=== PATIENT | male | born 1955 | race Caucasian/White ===

== ENCOUNTER 2018-04-18 08:14 | Observation (INO) | payer BC ==
[2018-04-18 09:31] VITALS: BMI 33.2
[2018-04-18 09:31] LABS: Urine Appearance CLEAR; Urine Bilirubin NEGATIVE (NEG); Urine Blood NEGATIVE (NEG); Urine Color YELLOW; Urine Glucose NEGATIVE (NEG); Urine Protein NEGATIVE (NEG); Urine Specific Gravity 1.025 (1.005-1.030); Urine Urobilinogen 0.2 mg/dL (0.2-1.0); Urine pH 6.5 (5.0-7.0)
[2018-04-18 10:05] LABS: Urine Bacteria <20 /HPF (NONE SEEN); Urine Culture Reflex Order NOT NEEDED; Urine RBC <5 /HPF (NONE SEEN)
[2018-04-18] MEDS ORDERED: MORPHINE 4 MG/ML SYR IV PRN ×2 (10:29→16:23)
--- NOTE | 2018-04-18 14:08 | P.HP ---
Certification for Inpatient Patient admitted to: Observation With expected LOS: <2 Midnights Patient will require the following post-hospital care: None Practitioner: I am a practitioner with admitting privileges, knowledge of patient current condition, hospital course, and medical plan of care. Services: Services provided to patient in accordance with Admission requirements found in Title 42 Section 412.3 of the Code of Federal Regulations Patient History Date of Service: 04/18/18 Reason for admission: Cholecystitis with cholelithiasis, biliary colic History of Present Illness: This patient has had severe abdominal pain all day yesterday. Been in the right upper quadrant. Thought it was his heartburn. Pain was unrelenting and he went to another facility for diagnosis and treatment. He was found have on ultrasound a stone stuck in the neck of the gallbladder. Allergies HORSE/EQUINE PRODUCT DERIVA Allergy (Severe, Uncoded 04/18/18 09:06) Anaphylaxis Home medications list reviewed: Yes Home Medications: NK [No Home Meds] 04/18/18 - Past Medical/Surgical History Has patient received pneumonia vaccine in the past: No Diabetic: No -: GERD -: STERNUM REPAIR AFTER IT SNAPPED IN HALF DURING WATER SKIING - Social History Smoking Status: Former smoker Alcohol use: No CD- Drugs: No Caffeine use: Yes Place of Residence: Home Review of Systems Unremarkable Gastrointestinal: Other (The patient complains of esophageal reflux and heartburn for the last 8 years) Physical Examination - Vital Signs Temperature: 97.4 F Blood Pressure: 150/77 Pulse: 52 Respirations: 18 Pulse Ox (%): 95 - Physical Exam General: Alert, Mild distress HEENT: Sclerae nonicteric Respiratory: Normal air movement Cardiovascular: Normal S1 S2 Gastrointestinal: Other (Tender in the right upper quadrant) External genitalia: Normal Rectal: Deferred - Studies Elevated white cell count Imagings Data: CT scan demonstrates large stone stuck in the neck of the gallbladder. Assessment and Plan - Plan Patient has a stone stuck in his gallbladder the right upper quadrant on CT scan. Has received pain medicine. Pain is currently alleviated, will take to the operating room for lap choly with intraoperative cholangiogram. The risks of this procedure have been discussed. The possibility of bleeding, infection, injury to bile ducts blood vessels and intestines has been described. The possible need for an open and/or further surgeries and procedures was discussed. He understands and wants to proceed. Discharge Plan: Home Plan to discharge in: 24 Hours - Advance Directives Does patient have a Living Will: No Does patient have a Durable POA for Healthcare: No
[2018-04-18] MEDS ORDERED: PROPOFOL 200 MG/20 ML VIAL IV ONE (14:25)
[2018-04-18] MEDS ORDERED: LIDOCAINE 2% MPF 5 ML VIAL ONE (14:26)
[2018-04-18] MEDS ORDERED: ROCURONIUM 50 MG/5 ML VIAL IV ONE (14:26)
[2018-04-18] MEDS ORDERED: FENTANYL CITR 100 MCG/2 ML ONE (14:26)
[2018-04-18] MEDS ORDERED: BUPIVACAINE 0.5% PF 10 ML VIAL ONE (14:38)
[2018-04-18] MEDS ORDERED: Ringers Lactate 1,000 ML IV ONE (14:40)
[2018-04-18] MEDS ORDERED: ONDANSETRON HCL 40 MG/20 ML VIAL ONE (15:03)
[2018-04-18] MEDS ORDERED: DEXAMETHASONE 10 MG/ML VIAL ONE (15:03)
[2018-04-18] MEDS ORDERED: KETOROLAC 30 MG/ML INJ ONE (15:03)
[2018-04-18] MEDS ORDERED: NEOSTIGMINE 1 MG/ML -5 ML SYRINGE ONE (15:41)
[2018-04-18] MEDS ORDERED: GLYCOPYRROLATE 0.2 MG/ML SYR ONE (15:41)
--- NOTE | 2018-04-18 16:18 | P.OP ---
Preoperative diagnosis: Cholecystitis with cholelithiasis, biliary colic Postoperative diagnosis: Gangrenous cholecystitis with cholelithiasis, biliary colic Primary procedure: Laparoscopic cholecystectomy Secondary procedure: Intraoperative cholangiogram Anesthesia: General Estimated blood loss: Less than 30 cc Specimen: 1 gallbladder and contents Operative Technique: The patient was brought to the operating room placed supine on the table. After the induction of adequate general endotracheal anesthesia, the area of the abdomen is prepped with a DuraPrep solution, and draped in the usual aseptic manner. A subumbilical incision was made. This brought down through the skin and subcutaneous tissue. The Visiport was used to enter the peritoneal cavity and created pneumoperitoneum to approximately 12 mm of mercury. Under direct vision a 5 mm trocar was placed in the upper midline, and 2 other 5 mm trocars on the right lateral side. The patient's head was then elevated and rolled towards the stereo map plotter operator's side. We could see an acutely inflamed gallbladder. There was IV is patchy gangrene at the fundus of the gallbladder. It was markedly distended. We aspirated the common tense of the gallbladder. A grasper was able to be placed on the fundus of the gallbladder. Another 1 was placed down by Amy's pouch. Applying lateral traction we were able to dissect and expose the cystic duct and artery. This area was noted be markedly edematous with small oozing capillaries to most likely venous congestion The artery was dealt with 1st. It was clipped and divided in the usual manner. A clip was then placed between the gallbladder and the cystic duct. An opening was made into the cystic duct. We attempted then to pass the cholangiocath into the cystic duct. The cholangiogram revealed no evidence of any filling defects and we had good flow of contrast into the duodenum. Clips were now placed on the distal portion of the cystic duct. The cystic duct was then divided. The gallbladder was now dissected free from the liver bed. The liver this area was quite friable as was the gallbladder most notably on the posterior surface. A small rent was made in the gallbladder during our dissection. The gallbladder was finally dissected free from the liver bed, placed into an Endo-Catch, and brought out through the umbilical trocar site. The gallbladder fossa was inspected to ensure adequate hemostasis. It was noted that we had lost a small stone from the gallbladder. It was Graston we attempted ring out through the 10 mm trocar site. It fragmented and necessitated piecemeal extraction from the peritoneal cavity. The area was now irrigated with a saline solution. Attention was turned back towards the right upper quadrant. It was irrigated with a saline solution and the irrigant aspirated from the peritoneal cavity. 0.25% Marcaine was aerosolized into the right upper quadrant and the gallbladder fossa. The umbilical trocar site was now approximated with an Endo Close and an absorbable sutures. The patient also has a umbilical hernia. It was necessary to place 4 interrupted sutures in this area to approximate the facile defect. The pneumoperitoneum was then collapsed , the suture tied, and antonia applied to the skin. A further 0.25% Marcaine was injected around are incision sites. At the end of the procedure the patient was in a stable condition when sent to the recovery room. Needle sponge instrument count were correct. 1 specimen was sent for histopathology. Complications: None Transferred to: Recovery Room Condition: Good
[2018-04-18] MEDS ORDERED: ONDANSETRON 4 MG/2 ML VIAL IV PRN (16:23)
[2018-04-18] MEDS ORDERED: HYDROCODONE/APAP 7.5/325 MG TAB PO PRN (16:23)
--- NOTE | 2018-04-18 16:34 | RAD REPORT ---
EXAM DESCRIPTION: RAD - Cholangiogram Oper-Xray Or - 04/18/2018 4:22 pm CLINICAL HISTORY: LAP FIDEL WITH IOC GALLSTONES COMPARISON: ABDOMEN SINGLE VIEW dated 12/13/2013 FINDINGS: Cystic duct injection was performed by operating surgeon. No retained stone is seen in the common duct. Total fluoro time: 0.1 minutes. IMPRESSION: No evidence of retained common duct stone.
[2018-04-18] MEDS: Ringers Lactate 1,000 ML IV SCH (17:00)
[2018-04-18 23:22] VITALS: O2SAT 93
[2018-04-19] MEDS: Ringers Lactate 1,000 ML IV SCH (02:31)
--- NOTE | 2018-04-19 17:39 | P.PN ---
Date of Service: 04/19/18 S: Patient feels well this evening, has been up ambulating, tolerating a diet, is anxious to go home. O: Incisions are clean, vital signs are stable A: Surgically stable P: This is known well status post laparoscopic cholecystectomy with intraoperative cholangiogram for acute gangrenous cholecystitis. He has received 3 doses of antibiotics. He is not requiring any pain medicine, is awake alert active able to get up and walk around. He is anxious to be discharged. He will go home today, see me on Friday in my office. If he has any questions or problems, he knows to return to the emergency room, or contact me.
[2018-04-19 18:18] VITALS: BP 123/75; TEMP 97.4
== END 2018-04-19 18:00 | disposition home or self-care (01) ==
LOC: 2ND 08:42
PROVIDERS: ADMIT Surgery; ATTEND Surgery
PROC: BF101ZZ Fluoroscopy of Bile Ducts using Low Osmolar Contrast (ICD-10-PCS; 2018-04-18)
PROC: 0FT44ZZ Resection of Gallbladder, Percutaneous Endoscopic Approach (ICD-10-PCS; principal; 2018-04-18 15:00)
DX: K80.00 Calculus of gallbladder with acute cholecystitis without obstruction (principal); Z87.891 Personal history of nicotine dependence
CPT/HCPCS: 74300; 81001; 88304; G0378; J1100; J2405; J2710; J3010; Q9967

== ENCOUNTER 2024-07-12 03:38 | Emergency (ER) | payer OTHER ==
[2024-07-12 04:43] LABS: Specific Gravity 1.016 (1.005-1.030); Sqamous Epithelial None Seen /HPF (None Seen); Urine Bacteria None Seen /HPF (<20); Urine Bilirubin NEGATIVE (Negative); Urine Blood Negative (Negative); Urine Clarity Extremely Turbid (Clear); Urine Color Light-Yellow (Yellow); Urine Culture Reflex Order NOT NEEDED; Urine Glucose NEGATIVE (Negative); Urine Ketones NEGATIVE (Negative); Urine Microscopic Reflex YN ORDER UMIC; Urine Nitrite NEGATIVE (Negative); Urine Protein NEGATIVE (Negative); Urine RBC None Seen /HPF (None Seen); Urine Urobilinogen Normal (Normal); Urine WBC None Seen /HPF (<5)
[2024-07-12] MEDS ORDERED: CIPROFLOXACIN HCL 500 MG TAB ONE (04:59)
--- NOTE | 2024-07-12 04:59 | EDPHYS ---
Physician Documentation [facility] Name: Celso Zhong Age: 69 yrs Sex: Male : 1955 Arrival Date: 07/12/2024 Time: 03:38 Bed 8 Private MD: ED Physician Salo Knox HPI: 07/12 03:54 This 69 yrs old Male presents to ER via Unassigned with complaints of Pain With rn Urination, Urinary Retention. 03:54 The patient presents with urinary symptoms, retention, unable to void, Last void was rn yesterday. Onset: The symptoms/episode began/occurred yesterday. Modifying factors: The symptoms are alleviated by nothing, the symptoms are aggravated by nothing. Severity of symptoms: At their worst the symptoms were moderate, in the emergency department the symptoms are unchanged. The patient has not experienced similar symptoms in the past. Patient reports noticed yesterday was having difficulty urinating, last normal urination was yesterday morning around 9 or 10:00. Throughout the day was exhibiting dribbling urination and then now unable to urinate. Reports lower abdominal fullness as if his bladder was full. No fever or chills. Does report history of UTIs in the past. Unknown if any prostate problems. Denies trauma. Denies hematuria.. Historical: - Allergies: 04:03 HORSE/EQUINE PRODUCT DERIVATIVES; vc1 - Home Meds: 04:03 levothyroxine oral [Active]; tamsulosin 0.4 mg oral capsule [Active]; "statin" [Active];vc1 - PMHx: 04:03 Hypothyroidism; Hypercholesterolemia; prostate issue; vc1 - PSHx: 04:03 None; vc1 - Immunization history:: Client reports having NOT received the Covid vaccine. - Infectious Disease History:: Denies. - Family history:: not pertinent. - Social history:: Smoking status: Patient reports use of chewing tobacco. Patient denies any tobacco usage or history of. - Hospitalizations: : No recent hospitalization is reported. ROS: 03:54 Constitutional: Negative for fever, chills, and weight loss, Cardiovascular: Negative rn for chest pain, palpitations, and edema, Respiratory: Negative for shortness of breath, cough, wheezing, and pleuritic chest pain, Abdomen/GI: + suprapubic pain Back: Negative for injury and pain, : + unable to urinate Exam: 03:54 Constitutional: This is a well developed, well nourished patient who is awake, alert, rn and in no acute distress. Ambulatory to room without difficulty or assistance Cardiovascular: Regular rate and rhythm. No pulse deficits. Abdomen/GI: Soft, nontender, mild discomfort upon suprapubic palpation Vital Signs: 03:50 BP 162 / 98; Pulse 75; Resp 15; Temp 97; Pulse Ox 100% ; Weight 95.25 kg; Height 5 ft. vc1 9 in. ; Pain 7/10; 04:26 BP 162 / 96; Pulse 72; Resp 16; Temp 97; Pulse Ox 100% ; Pain 2/10; bm8 05:04 BP 145 / 83; Pulse 67; Resp 17; Temp 97; Pulse Ox 100% ; Pain 0/10; bm8 03:50 Body Mass Index 31.01 (95.25 kg, 175.26 cm) vc1 03:50 Pain Scale: Adult vc1 04:26 Pain Scale: Adult bm8 05:04 Pain Scale: Adult bm8 Carrie Coma Score: 04:26 Eye Response: spontaneous(4). Motor Response: obeys commands(6). Verbal Response: bm8 oriented(5). Total: 15. 05:04 Eye Response: spontaneous(4). Motor Response: obeys commands(6). Verbal Response: bm8 oriented(5). Total: 15. MDM: 03:48 Medical Screening Exam initiated rn 04:56 Differential diagnosis: UTI, urinary retention, prostatitis. Data reviewed: vital rn signs, nurses notes, lab test result(s), and as a result, I will discharge patient. Counseling: I had a detailed discussion with the patient and/or guardian regarding the historical points, exam findings, and any diagnostic results supporting the discharge/admit diagnosis, lab results, the need for outpatient follow up, to return to the emergency department if symptoms worsen or persist or if there are any questions or concerns that arise at home. Response to treatment: the patient's symptoms have markedly improved after treatment, and as a result, I will discharge patient. Special discussion: I discussed with the patient/guardian in detail that at this point there is no indication for admission to the hospital. It is understood, however, that if the symptoms persist or worsen the patient needs to return immediately for re-evaluation. Based on the history and exam findings, there is no indication for further emergent testing or inpatient evaluation. I discussed with the patient/guardian the need to see the urologist for further evaluation of the symptoms. ED course: Patient markedly improved after Hercules catheter insertion. No hematuria noted. Good drainage. UA negative for infection. Patient already on Flomax. Will place on antibiotics and he has a urologist and will try to get in as soon as possible. Return precautions given and understood.. 07/12 03:48 Order name: Urinalysis w/ reflexes; Complete Time: 04:48 rn 07/12 03:54 Order name: Hercules Leg Bag; Complete Time: 04:29 rn Administered Medications: 05:04 Drug: Ciprofloxacin PO 500 mg PO once Route: PO; bm8 05:04 Follow up: Response: No adverse reaction; Medication administered at discharge. bm8 Disposition Summary: 07/12/24 04:58 Discharge Ordered Notes: Location: Home rn Problem: new rn Symptoms: have improved rn Condition: Stable rn Diagnosis - Retention of urine, unspecified rn Followup: rn - With: Private Physician - When: As needed - Reason: Recheck today's complaints, Re-evaluation by your physician Discharge Instructions: - Discharge Summary Sheet rn - Indwelling Urinary Catheter Care, Adult rn - Acute Urinary Retention, Male rn Forms: - Medication Reconciliation Form rn - Antibiotic rn neonatal icu - Prescription Opioid Use rn - Patient Portal Instructions rn - Leadership Thank You Letter rn Prescriptions: - Cipro 500 mg Oral Tablet - take 1 tablet ORAL route every 12 hours for 10 days; 20 tablet; Refills: 0, rn Product Selection Permitted Signatures: Dispatcher [employer] EDSalo Keane MD MD rn Calcote, Vanessa, RN RN vc1 Win Barraza, RN RN bm8
--- NOTE | 2024-07-12 04:59 | ER ---
Nurse's Notes [facility] Name: Celso Zhong Age: 69 yrs Sex: Male : 1955 Arrival Date: 07/12/2024 Time: 03:38 Bed 8 Private MD: Diagnosis: Retention of urine, unspecified Presentation: 07/12 03:50 Chief complaint: Patient states: trouble urinating since yesterday with burning and vc1 pain to the tip of my penis. Coronavirus screen: Client denies travel out of the [place] in the last 14 days. At this time, the client does not indicate any symptoms associated with coronavirus-19. Ebola Screen: Patient negative for fever greater than or equal to 101.5 degrees Fahrenheit, and additional compatible Ebola Virus Disease symptoms Patient denies exposure to infectious person. Patient denies travel to an Ebola-affected area in the 21 days before illness onset. No symptoms or risks identified at this time. 03:50 Method Of Arrival: Ambulatory vc1 03:50 Initial Sepsis Screen: Does the patient meet any 2 criteria? No. Patient's initial vc1 sepsis screen is negative. Does the patient have a suspected source of infection? No. Patient's initial sepsis screen is negative. Risk Assessment: Do you want to hurt yourself or someone else? Patient reports no desire to harm self or others. Onset of symptoms was July 11, 2024 at 18:00. Care prior to arrival: None. Activity prior to arrival: None. Mechanism of Injury: No Mechanism of Injury. Transition of care: patient was not received from another setting of care. 03:50 Acuity: CAROLYN 4 vc1 Triage Assessment: 04:09 General: Appears in no apparent distress. Behavior is calm, cooperative, appropriate vc1 for age. Pain: Complains of pain in meatus Pain does not radiate. Pain currently is 7 out of 10 on a pain scale. Quality of pain is described as burning. EENT: No deficits noted. No signs and/or symptoms were reported regarding the EENT system. Neuro: Level of Consciousness is awake, alert, obeys commands, Oriented to person, place, time, situation, Appropriate for age. Cardiovascular: No deficits noted. Capillary refill < 3 seconds Patient's skin is warm and dry. Cardiovascular: Heart tones S1 S2 present. Respiratory: Airway is patent Respiratory effort is even, unlabored, Respiratory pattern is regular, symmetrical, Breath sounds are clear. GI: No deficits noted. No signs and/or symptoms were reported involving the gastrointestinal system. : Reports burning with urination, inability to void, since 1800 07/11/24 pain with urination, Pain is 7 out of 10 on a pain scale. Derm: Skin is intact, is healthy with good turgor, Skin is dry, Skin is normal, Skin temperature is warm. Musculoskeletal: Circulation, motion, and sensation intact. Range of motion: intact in all extremities. Historical: - Allergies: 04:03 HORSE/EQUINE PRODUCT DERIVATIVES; vc1 - Home Meds: 04:03 levothyroxine oral [Active]; tamsulosin 0.4 mg oral capsule [Active]; "statin" [Active];vc1 - PMHx: 04:03 Hypothyroidism; Hypercholesterolemia; prostate issue; vc1 - PSHx: 04:03 None; vc1 - Immunization history:: Client reports having NOT received the Covid vaccine. - Infectious Disease History:: Denies. - Family history:: not pertinent. - Social history:: Smoking status: Patient reports use of chewing tobacco. Patient denies any tobacco usage or history of. - Hospitalizations: : No recent hospitalization is reported. Screenin:08 [facility] ED Fall Risk Assessment (Adult) History of falling in the last 3 months, vc1 including since admission No falls in past 3 months (0 pts) Confusion or Disorientation No (0 pts) Intoxicated or Sedated No (0 pts) Impaired Gait No (0 pts) Mobility Assist Device Used No (0 pt) Altered Elimination Yes (1 pt) Score/Fall Risk Level 3 or more points = High Risk Oriented to surroundings, Maintained a safe environment, Educated pt \\T\\ family on fall prevention, incl call for assistance when getting out of bed. Abuse screen: Denies threats or abuse. Nutritional screening: No deficits noted. Tuberculosis screening: No symptoms or risk factors identified. Assessment: 04:16 General: See triage assessment. vc1 04:26 General: Appears in no apparent distress. comfortable, Behavior is calm, cooperative, bm8 appropriate for age. Pain: Denies pain. Neuro: No deficits noted. Level of Consciousness is awake, alert, obeys commands, Oriented to person, place, time, situation, Appropriate for age. Cardiovascular: No deficits noted. Denies chest pain, Capillary refill < 3 seconds in bilateral fingers toes Patient's skin is warm and dry. Respiratory: No deficits noted. Airway is patent Respiratory effort is even, unlabored, Respiratory pattern is regular, symmetrical. GI: No signs and/or symptoms were reported involving the gastrointestinal system. : Urine is cloudy. EENT: No signs and/or symptoms were reported regarding the EENT system. Derm: No deficits noted. No signs and/or symptoms reported regarding the dermatologic system. Musculoskeletal: No signs and/or symptoms reported regarding the musculoskeletal system. 05:04 Reassessment: Patient appears in no apparent distress at this time. Patient and/or bm8 family updated on plan of care and expected duration. Pain level reassessed. Patient is alert, oriented x 3, equal unlabored respirations, skin warm/dry/pink. Patient denies pain at this time. Patient states feeling better. Patient states symptoms have improved. Vital Signs: 03:50 BP 162 / 98; Pulse 75; Resp 15; Temp 97; Pulse Ox 100% ; Weight 95.25 kg; Height 5 ft. vc1 9 in. ; Pain 7/10; 04:26 BP 162 / 96; Pulse 72; Resp 16; Temp 97; Pulse Ox 100% ; Pain 2/10; bm8 05:04 BP 145 / 83; Pulse 67; Resp 17; Temp 97; Pulse Ox 100% ; Pain 0/10; bm8 03:50 Body Mass Index 31.01 (95.25 kg, 175.26 cm) vc1 03:50 Pain Scale: Adult vc1 04:26 Pain Scale: Adult bm8 05:04 Pain Scale: Adult bm8 Carrie Coma Score: 04:26 Eye Response: spontaneous(4). Motor Response: obeys commands(6). Verbal Response: bm8 oriented(5). Total: 15. 05:04 Eye Response: spontaneous(4). Motor Response: obeys commands(6). Verbal Response: bm8 oriented(5). Total: 15. ED Course: 03:44 Patient arrived in ED. gm2 03:48 Salo Knox MD is Attending Physician. rn 04:03 Triage completed. vc1 04:06 Arm band placed on right wrist. vc1 04:09 Patient has correct armband on for positive identification. Bed in low position. Call vc1 light in reach. Pulse ox on. NIBP on. 04:25 Win Barraza, RN is Primary Nurse. bm8 04:26 No provider procedures requiring assistance completed. Urine collected: Sweeney catheter bm8 specimen, cloudy, Amount Returned: 900mL. Sweeney cath inserted, using sterile technique, 16 Fr., by nd, balloon inflated, to gravity drainage, urine specimen collected. Patient tolerated well. switched to leg bag. Patient did not have IV access during this emergency room visit. Patient maintains SpO2 saturation greater than 95% on room air. 05:00 Provided Education on: sweeney bag. vc1 Administered Medications: 05:04 Drug: Ciprofloxacin PO 500 mg PO once Route: PO; bm8 05:04 Follow up: Response: No adverse reaction; Medication administered at discharge. bm8 Medication: 04:15 VIS not applicable for this client. vc1 Outcome: 04:58 Discharge ordered by . rn 04:59 Discharged to home ambulatory, vc1 04:59 Condition: good 04:59 Discharge instructions given to patient, Instructed on discharge instructions, follow up and referral plans. medication usage, Demonstrated understanding of instructions, follow-up care, medications, Prescriptions given X 1, 05:05 Patient left the ED. bm8 Signatures: Salo Knox MD MD rn Calcote, Vanessa, RN RN vc1 Inés More[facility] Win Barraza, RN RN bm8
[2024-07-12 08:24] VITALS: TEMP 97; O2SAT 100
[2024-07-12 08:27] VITALS: BP 145/83
== END 2024-07-12 05:05 | disposition home or self-care (01) ==
LOC: ER 03:38
DX: R33.9 Retention of urine, unspecified (principal); R30.0 Dysuria
CPT/HCPCS: 51702; 81001; 99284

== ENCOUNTER 2024-07-25 16:07 | Emergency (ER) | payer OTHER ==
[2024-07-25] MEDS ORDERED: BISACODYL 10 MG RECTAL SUPP ONE (16:51)
[2024-07-25] MEDS ORDERED: ONDANSETRON 4 MG/2 ML VIAL ONE (16:51)
[2024-07-25] MEDS ORDERED: NA CHLORIDE 0.9% 1,000 ML ONE (16:51)
[2024-07-25] MEDS ORDERED: LACTULOSE 20 GM/30 ML UCUP ONE ×2 (16:51→18:45)
[2024-07-25] MEDS ORDERED: FAMOTIDINE 20 MG/2 ML VIAL IV ONE (16:51)
[2024-07-25 16:59] LABS: Absolute Eosinophils 0.2 K/uL (0-0.5); Absolute Lymphocytes (CBC) 2.3 K/uL (0.7-4.9); Absolute Monocytes 1.2 K/uL (0.1-1.3); Absolute Neutrophil 4.9 K/uL (1.8-8.0); Basophils % 0.6 % (0-1.3); Eosinophils % 2.1 % (0-4.4); Hematocrit 41.8 % (39.6-49.0); Hemoglobin 13.8 g/dL (13.6-17.9); Lymphocytes % 26.8 % (15.3-44.8); MCH 30.8 pg (27.0-35.0); MCHC 33.1 g/dL (32.0-36.0); MPV 7.6 fL (7.6-11.3); Monocytes % 14.4 % (3.3-12.3); Neutrophils % 56.1 % (41.7-73.7); Platelets 264 thou/uL (152-406); Red Cell Distribution Width 13.7 % (12.1-15.2)
[2024-07-25 17:01] LABS: Specific Gravity 1.016 (1.005-1.030); Sqamous Epithelial None Seen /HPF (None Seen); Urine Bacteria None Seen /HPF (<20); Urine Bilirubin NEGATIVE (Negative); Urine Blood 3+ (OVER) (Negative); Urine Clarity Extremely Turbid (Clear); Urine Color Light-Orange (Yellow); Urine Crystals Unidentified Few /HPF (None Seen); Urine Culture Reflex Order REFLEXED; Urine Glucose NEGATIVE (Negative); Urine Ketones NEGATIVE (Negative); Urine Microscopic Reflex YN ORDER UMIC; Urine Mucus Slight /HPF (None Seen); Urine Nitrite 2+ (Negative); Urine Protein 2+ (Negative); Urine RBC >50 /HPF (None Seen); Urine Urobilinogen Normal (Normal); Urine WBC >50 /HPF (<5); Urine WBC Clump Occasional /HPF (None Seen); Urine Yeast (Budding) Moderate /HPF (None Seen)
[2024-07-25 17:16] LABS: Albumin 3.4 g/dL (3.4-5.0); Albumin/Globulin Ratio 0.9 (1.1-1.8); Anion Gap 6.8 mEq/L (5.0-15.0); Bilirubin Total 0.5 mg/dL (0.2-1.0); Potassium 3.8 mEq/L (3.5-5.1); Protein, Total 7.4 g/dL (6.4-8.2)
[2024-07-25] MEDS ORDERED: levoFLOXacin 250 MG TAB ONE (18:18)
[2024-07-25] MEDS ORDERED: CEFTRIAXONE 1000 MG/VIAL ONE (18:18)
--- NOTE | 2024-07-25 18:52 | RAD REPORT ---
EXAMINATION: CT Abdomen Pelvis W Contrast CLINICAL INDICATION: Male, 69 years old. ABD PAIN TECHNIQUE: CT abdomen and pelvis was performed, after the administration of IV contrast, [facility]. Axial, sagittal and coronal reconstructions were obtained. One or more of the following dose reduction techniques were used: Automated exposure control, adjustment of the mA and k V according to patient size, and iterative reconstruction. Unless otherwise specified, incidental findings do not require dedicated imaging follow-up. COMPARISON: No prior exam. FINDINGS: LOWER CHEST: The visualized lung bases are clear. LIVER: Normal in size and contour. Subcapsular 3 cm cyst more superiorly. No suspicious focal lesion. BILIARY SYSTEM: No suspicious abnormalities. SPLEEN: Normal size. No focal lesion. PANCREAS: No mass, ductal dilation, or [place]-pancreatic fluid. ADRENALS: Normal; no mass. KIDNEYS: Normal size and contour. No hydronephrosis. Nonobstructing bilateral renal calculi largest o n the right is at the superior pole measuring 7 mm, and on the left is at the interpolar region measuring 9 mm. Multiple fluid density cortical cysts, largest of the right lower pole measuring 2 cm . URINARY BLADDER: Decompressed with Hercules catheter in place. Some hyperdense material layering depende ntly may reflect excreted contrast or small calculi. 7 mm calculus noted along the prostatic urethra. GASTROINTESTINAL TRACT: No evidence of free air, significant intra-abdominal free fluid, bowel obstru ction or abscess. Nonspecific fluid opacification of nondistended proximal to sigmoid colon, may relate to diarrheal state. APPENDIX: Normal appendix. LYMPH NODES: No lymphadenopathy. MUSCULOSKELETAL: No acute or suspicious osseous abnormality. ADDITIONAL FINDINGS: None. IMPRESSION: Nonspecific fluid opacification of the nondistended colon proximally, may relate to diarrheal state. Nonobstructing bilateral renal calculi. Bladder is decompressed with minimal layering radiodense mate rial, may relate to accessory contrast or small calculi. 7 mm calculus along the prostatic urethra.
--- NOTE | 2024-07-25 19:28 | EDPHYS ---
Physician Documentation [facility] Name: Celso Zhong Age: 69 yrs Sex: Male : 1955 Arrival Date: 07/25/2024 Time: 16:07 Bed 6 Private MD: DAVID Physician Colten Sears HPI: 07/25 18:36 This 69 yrs old Male presents to ER via Ambulatory with complaints of catalina Constipation - x30hrs. 18:36 The patient presents with abdominal pain abdominal distention in the upper abdomen, in catalina the lower abdomen. Onset: The symptoms/episode began/occurred 2 day(s) ago. The symptoms do not radiate. Associated signs and symptoms: Pertinent positives: constipation. Modifying factors: The symptoms are alleviated by nothing, the symptoms are aggravated by NO BM. Severity of pain: At its worst the pain was moderate in the emergency department the pain is unchanged. The patient has experienced similar episodes in the past, multiple times. 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 - Infectious Disease History:: Denies. - Social history:: Smoking status: Patient denies any tobacco usage or history of. - Family history:: not pertinent. ROS: 18:36 Constitutional: Negative for fever, chills, and weight loss, Eyes: Negative for injury, catalina pain, redness, and discharge, ENT: Negative for injury, pain, and discharge, Neck: Negative for injury, pain, and swelling, Cardiovascular: Negative for chest pain, palpitations, and edema, Respiratory: Negative for shortness of breath, cough, wheezing, and pleuritic chest pain, Back: Negative for injury and pain, : Negative for injury, bleeding, discharge, and swelling, MS/Extremity: Negative for injury and deformity, Skin: Negative for injury, rash, and discoloration, Neuro: Negative for headache, weakness, numbness, tingling, and seizure, Psych: Negative for depression, anxiety, suicide ideation, homicidal ideation, and hallucinations, Allergy/Immunology: Negative for hives, rash, and allergies, Endocrine: Negative for neck swelling, polydipsia, polyuria, polyphagia, and marked weight changes, Hematologic/Lymphatic: Negative for swollen nodes, abnormal bleeding, and unusual bruising, 18:36 Abdomen/GI: Positive for abdominal pain, constipation, abdominal cramps, Exam: 18:36 Constitutional: This is a well developed, well nourished patient who is awake, alert, catalina and in no acute distress. Head/Face: Normocephalic, atraumatic. Eyes: Pupils equal round and reactive to light, extra-ocular motions intact. Lids and lashes normal. Conjunctiva and sclera are non-icteric and not injected. Cornea within normal limits. Periorbital areas with no swelling, redness, or edema. ENT: Nares patent. No nasal discharge, no septal abnormalities noted. Tympanic membranes are normal and external auditory canals are clear. Oropharynx with no redness, swelling, or masses, exudates, or evidence of obstruction, uvula midline. Mucous membranes moist. Neck: Trachea midline, no thyromegaly or masses palpated, and no cervical lymphadenopathy. Supple, full range of motion without nuchal rigidity, or vertebral point tenderness. No Meningismus. Chest/axilla: Normal chest wall appearance and motion. Nontender with no deformity. No lesions are appreciated. Cardiovascular: Regular rate and rhythm with a normal S1 and S2. No gallops, murmurs, or rubs. Normal PMI, no JVD. No pulse deficits. Respiratory: Lungs have equal breath sounds bilaterally, clear to auscultation and percussion. No rales, rhonchi or wheezes noted. No increased work of breathing, no retractions or nasal flaring. Back: No spinal tenderness. No costovertebral tenderness. Full range of motion. Male : Normal genitalia with no discharge or lesions. Skin: Warm, dry with normal turgor. Normal color with no rashes, no lesions, and no evidence of cellulitis. MS/ Extremity: Pulses equal, no cyanosis. Neurovascular intact. Full, normal range of motion. Neuro: Awake and alert, GCS 15, oriented to person, place, time, and situation. Cranial nerves II-XII grossly intact. Motor strength 5/5 in all extremities. Sensory grossly intact. Cerebellar exam normal. Normal gait. Psych: Awake, alert, with orientation to person, place and time. Behavior, mood, and affect are within normal limits. 18:36 Abdomen/GI: Inspection: distension, that is mild, Bowel sounds: normal, Palpation: mild abdominal tenderness, in all quadrants, Liver: no appreciated palpable abnormalities, Hernia: not appreciated, Vital Signs: 16:30 BP 133 / 73; Pulse 74; Resp 17; Temp 97.9(O); Pulse Ox 100% on R/A; Weight 95.25 kg; cm10 Height 5 ft. 9 in. ; Pain 8/10; 18:46 BP 141 / 99; Pulse 70; Resp 16; Pulse Ox 98% on R/A; mb9 20:19 BP 125 / 94; Pulse 80; Resp 17; Pulse Ox 98% ; vc1 21:51 BP 121 / 91; Pulse 84; Resp 17; Temp 97.9; Pulse Ox 99% ; Pain 0/10; bm8 16:30 Body Mass Index 31.01 (95.25 kg, 175.26 cm) cm10 16:30 Pain Scale: Adult cm10 21:51 Pain Scale: Adult bm8 Carrie Coma Score: 21:51 Eye Response: spontaneous(4). Motor Response: obeys commands(6). Verbal Response: bm8 oriented(5). Total: 15. MDM: 16:33 Medical Screening Exam initiated [place] 18:42 Differential diagnosis: bowel obstruction, Cholelithiasis, diverticulitis, gastritis, [place] gastroesophageal reflux disease, Hepatitis, Mesenteric ischemia or infarction, non-specific abd pain, pancreatitis, Peptic Ulcer Disease, Perf. Duodenal Ulcer, Peritonitis, Ureterolithiasis, urinary tract infection. Data reviewed: vital signs, nurses notes. Consideration of Admission/Observation Escalation of care including admission/observation considered. I considered the following discharge prescriptions or medication management in the emergency department Medications were administered in the Emergency Department. See MAR. Independent interpretation of the following test(s) in the Emergency Department CT Scan: My interpretation is CT ABD/ PEL. Test considered but Not performed: Ultrasound NO ABD USG. Historians other than the Patient: PT WELL INFORMED. Care significantly affected by the following chronic conditions: HIGH CHOLESTEROL, HYPOTHYROID, PROSTRATE. 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 07/25 16:37 Order name: CBC with Diff; Complete Time: 18:02 [place] 07/25 16:37 Order name: CMP; Complete Time: 18:02 [place] 07/25 16:37 Order name: Lipase; Complete Time: 18:02 [place] 07/25 16:37 Order name: Urinalysis w/ reflexes; Complete Time: 18:02 [place] 07/25 17:05 Order name: Urine Culture [facility] 07/25 16:37 Order name: CT Abd/Pelvis - PO and IV Contrast; Complete Time: 19:25 [place] 07/25 16:37 Order name: IV Saline Lock; Complete Time: 16:53 [place] 07/25 16:37 Order name: Labs collected and sent; Complete Time: 16:53 [place] 07/25 19:26 Order name: Misc. Order: REMOVE SANTIAGO; Complete Time: 20:18 [place] 07/25 21:26 Order name: Bladder Scanner; Complete Time: 21:53 lg3 Administered Medications: 17:00 Drug: NS 0.9% IV 1000 ml IV at 1 bolus Per protocol; to be given as a bolus over 60 ko1 minutes Route: IV; Rate: 1 bolus; Site: right antecubital; 17:45 Follow up: Response: No adverse reaction; IV Status: Completed infusion 9 17:00 Drug: Lactulose PO 30 grams 45 ml PO once Volume: 45 ml; Route: PO; ko1 17:45 Follow up: Response: No adverse reaction 9 17:00 Drug: Dulcolax CA Suppository 10 mg CA once Route: CA; ko1 17:44 Follow up: Response: No adverse reaction 9 17:01 Drug: Famotidine IVP 20 mg IVP once; dilute with 10 mL 0.9% NaCl; give over 2 minutes ko1 Route: IVP; Site: right antecubital; 17:16 Follow up: Response: No adverse reaction ko1 17:01 Drug: Ondansetron IVP 4 mg IVP once; over 2 minutes Route: IVP; Site: right antecubital;ko1 17:16 Follow up: Response: No adverse reaction ko1 18:20 Drug: Rocephin IV 1 grams IV at per protocol once; Given slow IV push per pharmacy ko1 instructions Route: IV; Rate: per protocol; Site: right antecubital; 21:53 Follow up: Response: No adverse reaction; IV Status: Completed infusion; IV Intake: [id number] 18:20 Drug: LevOfloxacin PO 500 mg PO once Route: PO; ko1 20:19 Follow up: Response: No adverse reaction vc1 18:45 Drug: Lactulose PO 30 grams 45 ml PO once Volume: 45 ml; Route: PO; mb9 20:18 Follow up: Response: No adverse reaction; Marked relief of symptoms vc1 20:18 Not Given (Patient Refused; Will take his prescription when he gets homee): flomax0.4 vc1 mg PO once Disposition Summary: 07/25/24 19:28 Discharge Ordered Notes: Location: Home [place] Problem: new catalina Symptoms: have improved catalina Condition: Stable catalina Diagnosis - UTI/ Urinary tract infection, site not specified catal[place] - Abdominal pain, unspecified ctaalina - Constipation catal[place] - Urinary calculus, unspecified - 7 MM IN PROSTHETIC URETHRA catalina - Other mechanical complication of urinary (indwelling) catheter [place]ina Followup: catalina - With: Private Physician - When: 2 - 3 days - Reason: Recheck today's complaints, Continuance of care, Re-evaluation by your physician Followup: [place] - With: Jacquie Chacon MD - When: 2 - 3 days - Reason: Recheck today's complaints, Re-evaluation by your physician Followup: [place] - With: Hugo Anderson MD - When: Tomorrow - Reason: Recheck today's complaints, Re-evaluation by your physician Discharge Instructions: - Discharge Summary Sheet catalina - Abdominal Pain, Adult catalina - Constipation, Adult [place] - Indwelling Urinary Catheter Care, Adult catalina - Kidney Stones catal[place] - Urinary Tract Infection, Adult [place] - Constipation, Adult, [id number] [place] - Kidney Stones, [id number] [place] - Urinary Tract Infection, Adult, [id number] [place] Forms: - Medication Reconciliation Form [place] - Antibiotic Education [place] - Prescription Opioid Use [place] - Patient Portal Instructions [place] - Leadership Thank You Letter [place] Prescriptions: - Dulcolax (bisacodyl) 10 mg Rectal suppository - insert 1 suppository RECTAL route once daily for 5 days; 5 suppository; [place] Refills: 0, Product Selection Permitted - cefdinir 300 mg Oral capsule - take 1 capsule ORAL route every 12 hours; 10 capsule; Refills: 0, Product [place] Selection Permitted - Flomax 0.4 mg Oral capsule - take 1 capsule ORAL route every 24 hours; 30 capsule; Refills: 0, Product [place] Selection Permitted - Lactulose 10 gram/15 mL Oral solution - take 30 milliliters ORAL route once daily; 300 milliliter; Refills: 0, Product [place] Selection Permitted - levofloxacin 250 mg Oral tablet - take 1 tablet ORAL route once daily; 9 tablet; Refills: 0, Product Selection [place] Permitted Signatures: Dispatcher [employer] Colten Henning MD MD cha Able, Lacie RN RN lg3 Eboni Dey RN RN ko1 Ramiro, Allegra Mcmahon RN RN mb9 Angelique Duque RN RN cm10 Lucy Moncada RN vc1 Win Barraza RN bm8
--- NOTE | 2024-07-25 19:28 | ER ---
Nurse's Notes [facility] Name: Celso Zhong Age: 69 yrs Sex: Male : 1955 Arrival Date: 07/25/2024 Time: 16:07 Bed 6 Private MD: Diagnosis: UTI/ Urinary tract infection, site not specified;Abdominal pain, unspecified;Constipation;Urinary calculus, unspecified-7 MM IN PROSTHETIC URETHRA;Other mechanical complication of urinary (indwelling) catheter Presentation: 07/25 16:30 Chief complaint: Patient states: Constipation X30 hrs. Pt states taking OTC medications cm10 with no relief. Pt reports pain to his rectum. Coronavirus screen: Client denies travel out of the [place] in the last 14 days. Ebola Screen: Patient denies travel to an Ebola-affected area in the 21 days before illness onset. No symptoms or risks identified at this time. Initial Sepsis Screen: Does the patient meet any 2 criteria? No. Patient's initial sepsis screen is negative. Does the patient have a suspected source of infection? No. Patient's initial sepsis screen is negative. Risk Assessment: Do you want to hurt yourself or someone else? Patient reports no desire to harm self or others. Onset of symptoms was July 25, 2024. 16:30 Method Of Arrival: Ambulatory cm10 16:30 Acuity: CAROLYN 3 cm10 Triage Assessment: 16:32 General: Appears in no apparent distress. uncomfortable, Behavior is calm, cooperative. cm10 Pain: Complains of pain in Rectum Pain does not radiate. Pain currently is 8 out of 10 on a pain scale. Neuro: No deficits noted. Level of Consciousness is awake, alert, obeys commands, Oriented to person, place, time, situation, Appropriate for age. Respiratory: No deficits noted. Airway is patent Respiratory effort is even, unlabored, Respiratory pattern is regular, symmetrical. GI: Reports constipation. 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 - Infectious Disease History:: Denies. - Social history:: Smoking status: Patient denies any tobacco usage or history of. - Family history:: not pertinent. Screenin:35 [facility] ED Fall Risk Assessment (Adult) History of falling in the last 3 months, mb9 including since admission No falls in past 3 months (0 pts) Confusion or Disorientation No (0 pts) Intoxicated or Sedated No (0 pts) Impaired Gait No (0 pts) Mobility Assist Device Used No (0 pt) Altered Elimination No (0 pt) Score/Fall Risk Level 0 - 2 = Low Risk Oriented to surroundings, Maintained a safe environment, Educated pt \T\ family on fall prevention, incl call for assistance when getting out of bed. Abuse screen: Denies threats or abuse. Nutritional screening: No deficits noted. Tuberculosis screening: No symptoms or risk factors identified. Assessment: 16:53 General: Appears in no apparent distress. Behavior is calm, cooperative. Pain: mb9 Complains of pain in buttocks Pain does not radiate. Pain currently is 7 out of 10 on a pain scale. Quality of pain is described as burning, Pain began 1 day ago. Is intermittent. Neuro: Stout Agitation-Sedation Scale (RASS): 0 - Alert and Calm Level of Consciousness is awake, alert, obeys commands, Oriented to person, place, time, situation, Appropriate for age. Cardiovascular: Heart tones S1 S2 present. Respiratory: Airway is patent Respiratory effort is even, unlabored, Respiratory pattern is regular, symmetrical, Breath sounds are clear bilaterally. GI: Abdomen is round non-distended, Bowel sounds present X 4 quads. Abd is soft and non tender X 4 quads. Reports constipation. : Hercules in place. EENT: No signs and/or symptoms were reported regarding the EENT system. Derm: Skin is pink, warm \T\ dry. Musculoskeletal: Range of motion: intact in all extremities. 18:46 Reassessment: No changes from previously documented assessment. Patient and/or family mb9 updated on plan of care and expected duration. Pain level reassessed. Patient is alert, oriented x 3, equal unlabored respirations, skin warm/dry/pink. 20:19 Reassessment: Pt to be discharged after he voids. vc1 21:51 Reassessment: Patient appears in no apparent distress at this time. Patient is alert, bm8 oriented x 3, equal unlabored respirations, skin warm/dry/pink. bladder scanned pt and he had 0ml in bladder. pt decided that he was ready to go and if he needed to he would come back in. Patient states feeling better. Patient states symptoms have improved. Vital Signs: 16:30 BP 133 / 73; Pulse 74; Resp 17; Temp 97.9(O); Pulse Ox 100% on R/A; Weight 95.25 kg; cm10 Height 5 ft. 9 in. ; Pain 8/10; 18:46 BP 141 / 99; Pulse 70; Resp 16; Pulse Ox 98% on R/A; mb9 20:19 BP 125 / 94; Pulse 80; Resp 17; Pulse Ox 98% ; vc1 21:51 BP 121 / 91; Pulse 84; Resp 17; Temp 97.9; Pulse Ox 99% ; Pain 0/10; bm8 16:30 Body Mass Index 31.01 (95.25 kg, 175.26 cm) cm10 16:30 Pain Scale: Adult cm10 21:51 Pain Scale: Adult bm8 [place] Coma Score: 21:51 Eye Response: spontaneous(4). Motor Response: obeys commands(6). Verbal Response: bm8 oriented(5). Total: 15. ED Course: 16:10 Patient arrived in ED. ra3 16:31 Triage completed. cm10 16:32 Allegra Rubio, HERNAN is Primary Nurse. mb9 16:33 Colten Sears MD is Attending Physician. [facility] 16:33 Arm band placed on right wrist. Patient placed in waiting room. cm10 16:34 Placed in gown. Bed in low position. Call light in reach. Side rails up X 1. Provided mb9 Education on: press call light if needing anything. Client placed on continuous cardiac and pulse oximetry monitoring. NIBP monitoring applied. 16:53 CBC with Diff Sent. mb9 16:53 CMP Sent. mb9 16:53 Lipase Sent. mb9 16:53 Urinalysis w/ reflexes Sent. mb9 16:54 No provider procedures requiring assistance completed. mb9 16:54 Initial lab(s) drawn, by me, sent to lab. Urine collected: Hercules catheter specimen, mb9 cloudy. Inserted saline lock: 20 gauge in right antecubital area, using aseptic technique. Blood collected. Flushed with 10 mL NS. 18:04 CT Abd/Pelvis - PO and IV Contrast In Process Unspecified. EDMS 19:26 Jacquie Chacon MD is Referral Physician. [place] 19:28 Hugo Anderson MD is Referral Physician. [place] 21:51 IV discontinued, intact, bleeding controlled, No redness/swelling at site. Pressure bm8 dressing applied. Administered Medications: 17:00 Drug: NS 0.9% IV 1000 ml IV at 1 bolus Per protocol; to be given as a bolus over 60 ko1 minutes Route: IV; Rate: 1 bolus; Site: right antecubital; 17:45 Follow up: Response: No adverse reaction; IV Status: Completed infusion mb9 17:00 Drug: Lactulose PO 30 grams 45 ml PO once Volume: 45 ml; Route: PO; ko1 17:45 Follow up: Response: No adverse reaction mb9 17:00 Drug: Dulcolax [place] Suppository 10 mg WA once Route: WA; ko1 17:44 Follow up: Response: No adverse reaction mb9 17:01 Drug: Famotidine IVP 20 mg IVP once; dilute with 10 mL 0.9% NaCl; give over 2 minutes ko1 Route: IVP; Site: right antecubital; 17:16 Follow up: Response: No adverse reaction ko1 17:01 Drug: Ondansetron IVP 4 mg IVP once; over 2 minutes Route: IVP; Site: right antecubital;ko1 17:16 Follow up: Response: No adverse reaction ko1 18:20 Drug: Rocephin IV 1 grams IV at per protocol once; Given slow IV push per pharmacy ko1 instructions Route: IV; Rate: per protocol; Site: right antecubital; 21:53 Follow up: Response: No adverse reaction; IV Status: Completed infusion; IV Intake: [id number] 18:20 Drug: LevOfloxacin PO 500 mg PO once Route: PO; ko1 20:19 Follow up: Response: No adverse reaction vc1 18:45 Drug: Lactulose PO 30 grams 45 ml PO once Volume: 45 ml; Route: PO; mb9 20:18 Follow up: Response: No adverse reaction; Marked relief of symptoms vc1 20:18 Not Given (Patient Refused; Will take his prescription when he gets homee): flomax0.4 vc1 mg PO once Medication: 16:35 VIS not applicable for this client. mb9 Intake: 21:53 IV: 10ml; Total: 10ml. bm8 Outcome: 19:28 Discharge ordered by . catalina 21:51 Discharged to home ambulatory, bm8 21:51 Condition: stable 21:51 Discharge instructions given to patient, Instructed on discharge instructions, follow up and referral plans. no drinking with medication, no driving heavy equipment, medication usage, safety practices, Demonstrated understanding of instructions, follow-up care, medications, Prescriptions given X x5 21:53 Patient left the ED. bm8 Signatures: Dispatcher [employer] EDMS Colten Sears MD MD cha Calcote, Vanessa, RN RN vc1 Eboni Dey RN RN ko1 Allegra Rubio, RN RN mb9 Angelique Duque, RN RN cm10 Re Sanchez ra3 Win Barraza, RN RN bm8
[2024-07-25 22:28] VITALS: TEMP 97.9
[2024-07-25 22:46] VITALS: BP 121/91; O2SAT 99
== END 2024-07-25 21:53 | disposition home or self-care (01) ==
LOC: ER 16:07
DX: N39.0 Urinary tract infection, site not specified (principal); E03.9 Hypothyroidism, unspecified; E78.00 Pure hypercholesterolemia, unspecified
CPT/HCPCS: 96365; 96361; 87088; 85025; 81001; 87086; 36415; 83690; 80053; 74177; 96375; 99284; 96366; Q9967; J2405; J7030; J0696; 87077; 87186

== ENCOUNTER 2024-11-30 06:36 | Day surgery (SDC) | payer OTHER ==
[2024-11-24 10:42] LABS: Absolute Eosinophils 0.2 K/uL (0-0.5); Absolute Lymphocytes (CBC) 1.9 K/uL (0.7-4.9); Absolute Monocytes 0.7 K/uL (0.1-1.3); Basophils % 0.5 % (0-1.3); Eosinophils % 3.1 % (0-4.4); Hematocrit 43.3 % (39.6-49.0); Hemoglobin 14.3 g/dL (13.6-17.9); Lymphocytes % 24.4 % (15.3-44.8); MCH 30.7 pg (27.0-35.0); MCHC 33.1 g/dL (32.0-36.0); MCV 92.8 fL (80-100); MPV 7.7 fL (7.6-11.3); Nucleated Red Blood Cells % 0.1 % (0-0); Platelets 281 thou/uL (152-406); RBC Red Blood Cell Count 4.67 M/uL (4.33-5.43); Red Cell Distribution Width 14.7 % (12.1-15.2)
[2024-11-24 10:48] LABS: PT Prothrombin Time 11.3 SECONDS (10-13.0); Protime INR 0.99
--- NOTE | 2024-11-24 10:49 | RAD REPORT ---
EXAMINATION: TWO VIEW CHEST XR CLINICAL INDICATION: Pre-op pending urolift TECHNIQUE: 2 views of the chest was performed. COMPARISON: 08/08/2017 FINDINGS: Mild COPD. 1 cm left midlung pulmonary nodule is seen. The heart is upper limit of normal in size. No displaced fractures evident. IMPRESSION: 1 cm nodule is present left midlung. Recommend CT chest for further evaluation.
[2024-11-24 11:13] LABS: Anion Gap 4.4 mEq/L (5.0-15.0); Potassium 4.4 mEq/L (3.5-5.1)
--- NOTE | 2024-11-26 14:47 | EKG ---
Test Date: 2024-11-24 Test Time: 10:22:20 Oral And Maxillofacial Surgery Resident: DANISH MEASUREMENT RESULTS: Intervals: Rate: 68 WA: 184 QRSD: 98 QT: 378 QTc: 401 [place]: P: 65 WA: 184 QRS: 55 T: 46 INTERPRETIVE STATEMENTS: Normal sinus rhythm Normal ECG Compared to ECG 08/08/2017 16:43:37 No significant changes Electronically Signed On 11-26-24 14:42:39 CDT by Chino Linares
[2024-11-30] MEDS: Ringers Lactate 1,000 ML IV ONE (07:30)
[2024-11-30] MEDS ORDERED: ONDANSETRON 4 MG/2 ML VIAL ONE (08:19)
[2024-11-30] MEDS ORDERED: FENTANYL CITR 100 MCG/2 ML ONE (08:19)
[2024-11-30] MEDS ORDERED: propofoL 200 MG/20 ML VIAL IV ONE (08:19)
[2024-11-30] MEDS ORDERED: MIDAZOLAM HCL 2 MG/2 ML INJ ONE (08:20)
[2024-11-30] MEDS ORDERED: LIDOCAINE 1% MPF 5 ML VIAL ONE (08:22)
[2024-11-30] MEDS: CEFAZOLIN SODIUM 2 GM/VIAL ONE (08:55)
[2024-11-30] MEDS ORDERED: EPHEDRINE SULF 50 MG/ML VIAL ONE (09:00)
[2024-11-30] MEDS ORDERED: GLYCOPYRROLATE 0.2 MG/ML SYR ONE (09:00)
[2024-11-30] MEDS: HYDROMORPHONE HCL 1 MG/ML INJ ONE ×2 (10:16→10:28)
--- NOTE | 2024-11-30 10:52 | P.OP ---
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 He underwent evaluation revealing the presence of multiple bladder calculi of uncertain etiology contributing to obstruction in the setting of significant BPH. He was counseled on the need for management of the bladder calculi and recommended to also manage his obstruction due to BPH, as this may be contributory to the formation of the bladder calculi. He elected to proceed accordingly with the UroLift. Procedure note: The patient was consented in the preoperative holding area before being transferred to the operative suite where general anesthesia was induced. He was given Ancef 2 g IV antimicrobial prophylaxis, and pneumoboots were provided for DVT prophylaxis. He was placed in the lithotomy position, padded and secured to the table appropriately. His genitalia was prepped with Hibiclens and he was draped in standard fashion. The case was begun using the 22 Beninese rigid cystoscope to traverse the urethra and navigate beyond a strictured area within the bulbar urethra with a slight degree of difficulty, but ultimately I was able to navigate the scope sufficient to dilate beyond the stricture narrowing and navigate through the prostatic urethra and enter into his bladder. Once in the bladder, I decompressed it of fluid and urine and surveyed identifying the foreign bladder calculi previously observed. Additionally, a smaller calculus was present within the prostatic urethra, likely contributing to his pain. I then utilized the stone element winding machine tender device via the 22 Beninese cystoscope to attempt to crush the stones, but this was not feasible; so I removed the cystoscope and the stone element winding machine tender device and then utilized urethral sounds to dilate his meatus and fossa navicularis to 30 Beninese. I then utilized a visual obturator and the 26 Beninese monopolar resectoscope to traverse the urethra and into his bladder with relative ease, again meeting a point of resistance in the bulbar urethra that I was able to suppress. Upon entry into the bladder, I then utilized a 550 nm laser fiber at a power setting of 1 J and 25 Hz to fragment the stones into fragments small enough to be removed using the Ilich evacuator. After I removed most of the stone fragments, I then surveyed the bladder again and utilized the laser a second time fragmenting additional larger fragments. I then utilized the stone element winding machine tender device and was successful at crushing some of the fragments into pieces small enough to be removed subsequently with additional Ilich evacuation. Once the bladder was free of all stone fragments and dust, I then decompressed his bladder and removed the resectoscope. I then utilized the 20 Beninese sheath and a visual obturator to traverse the urethra and into his bladder. I then switched the UroLift visual obturator for the first implant delivery device and an implant. The first implant was targeted at the bladder neck on the patient's left side where. At around the 3 o'clock position, I angled the delivery device about 15 degrees laterally against the tissue. I pulled the trigger once deploying the needle through the substance of the prostate before compressing the tissue completely and an additional 15 degrees to ensure the tip of the needle situated outside of the capsular surface. I then pulled the trigger a second time delivering the capsular tab and beginning to retract the needle. I third pule of the trigger did completely retract the needle and began to tension the suture. I then advanced the scope back toward the midline and 2 to 3 mm toward the bladder neck opening until the white line of a monofilament was centered in the delivery bay. At this point, I pulled the trigger a fourth time delivering the urethral end piece and tailoring the suture. This did nicely retract that adenoma on the left side. I then navigated the device back into the patient's bladder and switched it for a new implant which was then subsequently targeted on the patient's right side, this time sweeping the tissue anterolaterally at around the 11 o'clock position. This did beautifully lateralized the tissue, but now the tissue overhanging at the bladder neck from the left became more apparent; so a third implant was placed at the bladder neck on the left more anteriorly at around the 1 o'clock position, nicely elevating and opening the channel at the bladder neck. I then placed a fourth implant at the level of the verumontanum and the apical tissue on the left, and a 5th implant successfully at the 9 o'clock position on the right at the level of the verumontanum. I then surveyed the channel created and noted some residual lateral lobar intrusion emanating from the right side in the mid zone of the prostate; so I placed a 6th implant into that tissue. This did beautifully lateralized the tissue, but so much so that it now created a smile with the prostate narrowing the opening at the bladder neck more than desired. As a result, I utilized a stent device to see if I could grasp that tissue and move it off to the side opening the bladder neck by placing the implant more inferiorly. I discovered that I was able to navigate the tissue down and over to the patient's left side with the implant ultimately placed at around the 4 o'clock position in the left mid zone to the bladder neck aspect of the prostate, but this did successfully open up this mild that had been created back to a more beautiful rounded anterior channel. Survey of the channel created did suggest a slight degree of residual adenomatous intrusion emanating from the apical mid gland on the left; so I placed an 8th and final implant into that tissue creating a beautiful continuous anterior channel. There was a degree of hematuria emanating from the prostate; so I placed a 20 Beninese urethral Hercules catheter via his urethra into his bladder with ease, and then I irrigated his bladder with the Ilich evacuator via the catheter. The drainage was light pink. As a result, the catheter was connected to a leg bag, and the patient was taken out of the lithotomy position. He was then awakened from general anesthesia before being transferred to a stretcher. He was then transferred to the recovery room in good condition. Complications: None Discharge disposition: Beautiful continuous anterior channel created with aid implants used in this patient. Subsequent follow-up should be established in about 1 month's time. At that point, we will plan 24-hour urine metabolic profile assessment to figure out why he formed those 3 large bladder calculi. We will also reassess his symptoms at that time.
[2024-11-30] MEDS: CODEINE 30MG/APAP 300MG TAB ONE (11:20)
[2024-11-30 13:27] VITALS: BP 115/73; TEMP 97; O2SAT 98
== END 2024-11-30 12:20 | disposition home or self-care (01) ==
LOC: OR 06:36
PROVIDERS: ATTEND Urology
PROC: 0T7D8DZ Dilation of Urethra with Intraluminal Device, Via Natural or Artificial Opening Endoscopic (ICD-10-PCS; principal; 2024-11-30 08:30)
PROC: 0TFB8ZZ Fragmentation in Bladder, Via Natural or Artificial Opening Endoscopic (ICD-10-PCS; 2024-11-30 08:30)
DX: N40.1 Benign prostatic hyperplasia with lower urinary tract symptoms (principal); N21.0 Calculus in bladder; N13.8 Other obstructive and reflux uropathy; N35.912 Unspecified bulbous urethral stricture, male
CPT/HCPCS: 93005; 87088; 85025; 87086; 80048; 36415; 85610; 88300; 82360; 71046; 52441; 52442 ×7; 52317; J2704; J2003; J2250; J3010; J1171 ×2; J2405; J7120